=== PATIENT | female | born 1945 | race Caucasian/White ===

== ENCOUNTER 2023-01-05 07:05 | Day surgery (SDC) | payer MEDICARE, OTHER ==
[~2023-01-05] VITALS: Ht 175.3 cm; Wt 63.6 kg
[~2023-01-05 07:05] MED LIST: ALLOPURINOL100 MG PO; AMLODIPINE BESYL5 MG PO; BENAZEPRIL HCL20 MG PO; CALCIUM 600 +1 EACH PO; DAILY MULTIPLE1 EACH PO; FISH OIL 1,0001 EAC1 PO; GLUCOSAMINE &1 EAC1 PO; INDOMETHACIN25 MG PO; OMEPRAZOLE20 MG PO; VITAMIN C100 MG PO; VITAMIN D31000 UNI1 PO; ZINC50 M2 PO
[2023-01-05 07:33] VITALS: BP 125/59
--- NOTE | 2023-01-05 09:19 | NUR ---
01/05/23 0918 Melanie Costello 0910 PT ARRIVED TO PACU ON 3L VIA MASK, PT WAKES TO TACTILE STIMULI AND IS REORIENTED TO PACU. PT EASILY FALLS BACK TO SLEEP WITH SMALL AMOUNT OF SNORING NOTED. 09 PT ASLEEP AND LARGE AMOUNT OF SNORING NOTED, HOB INCREASED AND PT WAKES. DEEP BREATHING ENCOURAGED.
[2023-01-05 09:58] VITALS: BP 110/73
--- NOTE | 2023-01-05 11:02 | OR ---
[facility] [address] [place], [place] [address] Signed DATE OF OPERATION: 01/05/2023 SURGEON: Sirisha Cardozo MD PREOPERATIVE DIAGNOSES: 1. Gastroesophageal reflux disease. 2. Diverticulosis. 3. Scratchy irritated posterior oropharynx. POSTOPERATIVE DIAGNOSES: 1. Small hiatal hernia (38-35 cm). 2. GE junction at 35 cm. 3. Mild diffuse gastritis. 4. Mild to moderate sigmoid diverticulosis. 5. Long redundant tortuous colon. PROCEDURES: 1. EGD with CLOtest and biopsies of the antrum and GE junction. 2. Colonoscopy without biopsy. ESTIMATED BLOOD LOSS: None. INDICATIONS: Kaya is a 77-year-old lady asked to see me for not only a followup colonoscopy, but upper endoscopy as well. She describes acid reflux for many years. She has been using omeprazole. She said she has never had a previous upper endoscopy. More recently, she is having a dry scratchy irritated posterior oropharynx. She also has a history of diverticulosis. She underwent two previous colonoscopies. She had her first colonoscopy in 1999 at the age of 54 [address] Ulloa. He saw just a couple of diverticula in the sigmoid colon. She did well with Versed and Demerol. I helped with a colonoscopy in 2012 at the age of 67. She had sigmoid diverticulosis. Again, she did well with Versed and fentanyl. I asked her to follow up in 10 years for repeat colonoscopy. She currently has no lower GI complaints. In the office, I gave her a pamphlet on upper and lower endoscopy. She understands the nature of the two tests. There is risk including, but not limited to gas bloating, crampy abdominal pain, bleeding, perforation, requiring surgery, and missed diagnosis. She remembers the need for IV conscious sedation. She understands that an adult person has to take her home afterwards. She had expressed understanding and wished to proceed. Electronically Signed By: SIRISHA CARDOZO MD 01/05/23 1102 PATIENT NAME: KAYA JIMENEZ OPERATIVE REPORT DATE OF : 47 REPORT #: [id number] PHYSICIAN: SIRISHA CARDOZO MD PCP: GABO GUERRERO MD REPORT IS CONFIDENTIAL AND NOT TO BE RELEASED WITHOUT AUTHORIZATION [facility] [address] [place] [id number] Signed PROCEDURE NOTE: Kaya was taken into our endoscopy suite and placed in the supine semi-recumbent position. She was given IV sedation with 8 mg of Versed and 150 mcg of fentanyl to cover both cases. A posterior oropharynx was anesthetized with Hurricaine spray. A bite block was utilized for the case. She elected to keep her dentures in place. The adult colonoscope was introduced and advanced under direct visualization of camera without difficulty. The duodenum and pyloric channel were unremarkable. She really had no specific findings in the stomach. We went ahead and took a biopsy of the antrum for CLOtest as well as pathologic review. Upon retroflexion of the scope, she clearly has small to moderate sized hiatal hernia. The scope was withdrawn up through the area of the GE junction, which was compliant without stricture. The hiatal hernia measured roughly 38 back to 35 cm. Consequently, the GE junction is at 35 cm. She had some irritation around the Z-line. She also had very mild distal esophagitis. We went ahead and took a biopsy of the distal esophagus. The middle and upper esophagus were unremarkable. The posterior oropharynx was unremarkable. The arytenoids, vocal cords, and epiglottis were all unremarkable. After this, the gas was suctioned out and the gastroscope removed. Kaya tolerated the upper endoscopy quite well. Kaya was rotated into the left lateral decubitus position. She was maintained on IV sedation with Versed and fentanyl. A digital rectal exam was performed. She had no external hemorrhoids. There was good sphincter tone. There were no masses noted. The adult colonoscope was introduced and advanced under direct visualization of camera. It took extra sedation, abdominal compression in order to advance the scope up through her long redundant tortuous colon. She does have moderate sigmoid diverticulosis. They are moderate in size, moderate in number and scattered about. We slowly, but surely made our way around to the cecum. Her prep was quite good. We could easily see the appendiceal orifice and ileocecal valve. The scope was then slowly withdrawn. We took several pictures throughout for photodocumentation. Once in the rectum, the scope had been retroflexed and there was no additional pathology noted above the anal canal. After this, the gas was suctioned out and the colonoscope removed. Kaya tolerated the procedure quite well. RECOMMENDATIONS: I will see Kaya back in my office in 7 to 14 days to review her results. This may likely be her last colonoscopy. Sirisha Cardozo MD Electronically Signed By: SIRISHA CARDOZO MD 01/05/23 1102 PATIENT NAME: KAYA JIMENEZ OPERATIVE REPORT DATE OF : 47 REPORT #: [id number] PHYSICIAN: SIRISHA CARDOZO MD PCP: GABO GUERRERO MD REPORT IS CONFIDENTIAL AND NOT TO BE RELEASED WITHOUT AUTHORIZATION [address] [place] [address] Signed ALB/MODL /[id number] cc: MD Gabo Clay MD Copies: SIRISHA CARDOZO MD, RUSSELL BARR MD ~ Electronically Signed By: SIRISHA CARDOZO MD 01/05/23 1102 PATIENT NAME: KAYA JIMENEZ OPERATIVE REPORT DATE OF : 47 REPORT #: [id number] PHYSICIAN: SIRISHA CARDOZO MD PCP: GABO GUERRERO MD REPORT IS CONFIDENTIAL AND NOT TO BE RELEASED WITHOUT AUTHORIZATION
--- NOTE | 2023-01-10 17:32 | PATH ---
[facility] [address] [place], [place] [address] Signed SPECIMEN(S): A ANTRUM/ANTRAL BIOPSY SPECIMEN(S): B GE JUNCTION SPECIMEN SOURCE: A. ANTRUM/ANTRAL BIOPSY B. GE JUNCTION CLINICAL HISTORY: GERD. Postop: Gastritis; hiatal hernia; diverticulosis; long, tortuous colon FINAL PATHOLOGIC DIAGNOSIS: A. Antrum / antral biopsy: - Benign gastric-type mucosa with focal slight chronic inflammation. - Negative for evidence of Helicobacter organisms on routine HE-stained sections. B. Gastroesophageal junction: - Benign esophageal mucosa, negative for increased epithelial eosinophils. - Scant glandular mucosa, negative for specialized intestinal metaplasia. JVR:[facility] MICROSCOPIC EXAMINATION: Histologic sections of all submitted blocks are examined by light microscopy. These findings, together with the gross examination, support the pathologic diagnosis. GROSS DESCRIPTION: A. The specimen, labeled and designated "Jad, antral biopsy," is received in formalin and consists of one alarcon soft tissue fragment, 0.3 cm. Entirely submitted in (A1). B. The specimen, labeled and designated "Jad, GE junction biopsy," is received in formalin and consists of one alarcon soft tissue fragment, 0.4 cm. Entirely submitted in (B1). VB (under the direct supervision of a pathologist) The Gross Description was prepared using a voice recognition system. The report was reviewed for accuracy; however, sound-alike word errors, addition and/or deletions may occur. If there is any question about this report, please contact Client Services. PERFORMING LABORATORY: Technical component was performed by [facility], [address] [place] [id number] (CLIA# [id number]). Professional interpretation was PATIENT NAME: GIANCARLO JIMENEZ PATHOLOGY DATE OF : 47 REPORT #: [id number] PHYSICIAN: [facility] PCP: GABO GUERRERO MD REPORT IS CONFIDENTIAL AND NOT TO BE RELEASED WITHOUT AUTHORIZATION [facility] [address] [facility] [place] [place] [address] Signed performed by [facility] [address] [place] [address] (CLIA#: [id number]). Diagnostician: Christian Hernandez MD Pathologist Electronically Signed 01/10/2023 Copies: ~ PATIENT NAME: GIANCARLO JIMENEZ PATHOLOGY DATE OF : 47 REPORT #: [id number] PHYSICIAN: [facility] PCP: GABO GUERRERO MD REPORT IS CONFIDENTIAL AND NOT TO BE RELEASED WITHOUT AUTHORIZATION
== END 2023-01-05 10:10 | disposition home or self-care (01) ==
LOC: OPS 07:05 → DS 07:05 → OPS 08:15
PROVIDERS: ATTEND Colon & Rectal Surgery
PROC: 0DJD8ZZ Inspection of Lower Intestinal Tract, Via Natural or Artificial Opening Endoscopic (ICD-10-PCS; 2023-01-05)
PROC: 0DB48ZX Excision of Esophagogastric Junction, Via Natural or Artificial Opening Endoscopic, Diagnostic (ICD-10-PCS; principal; 2023-01-05 08:15)
PROC: 0DB68ZX Excision of Stomach, Via Natural or Artificial Opening Endoscopic, Diagnostic (ICD-10-PCS; 2023-01-05 08:15)
DX: Z12.11 Encounter for screening for malignant neoplasm of colon (principal); K57.30 Diverticulosis of large intestine without perforation or abscess without bleeding; Q43.8 Other specified congenital malformations of intestine; K20.90 Esophagitis, unspecified without bleeding; K29.50 Unspecified chronic gastritis without bleeding; K44.9 Diaphragmatic hernia without obstruction or gangrene; I35.8 Other nonrheumatic aortic valve disorders; M11.80 Other specified crystal arthropathies, unspecified site; M81.0 Age-related osteoporosis without current pathological fracture; I10 Essential (primary) hypertension; Z88.1 Allergy status to other antibiotic agents; Z88.0 Allergy status to penicillin; Z79.899 Other long term (current) drug therapy
CPT/HCPCS: 43239; G0121; 36415; 87077; 88305; 99153; G0500; J2250; J3010; J7121